=== PATIENT | female | born 2000 | race Caucasian/White ===

== ENCOUNTER 2025-08-24 13:34 | Outpatient (CLI) | payer OTHER ==
[~2025-08-24] VITALS: Ht 165.1 cm; Wt 86.2 kg
[2025-08-24 14:21] VITALS: BP 140/62
[2025-08-24 14:28] VITALS: BP 140/62
[2025-08-24 14:31] LABS: URINE APPEARANCE Clear; URINE BILIRRUBIN Negative (NEGATIVE); URINE BLOOD Negative; URINE COLOR Yellow; URINE GLUCOSE Negative (NEGATIVE); URINE KETONE Negative (NEGATIVE); URINE LEUKOCYTE Trace; URINE NITRATE Negative; URINE PROTEIN Negative (NEGATIVE); URINE UROBILINOGEN 0.2 E.U./dl
[2025-08-24 14:32] LABS: BASO % 0.2 % (0.1-1.2); EOS # 0.05 (0.04-0.54); EOS % 0.5 % (0.7-7.0); LYMPH # 1.93 (1.18-3.74); LYMPH % 20.8 % (19.3-53.1); MEAN PLATELET VOLUME 9.60 fl (9.4-12.4); MONO # 0.52 (0.24-0.82); MONO % 5.6 % (4.7-12.5); NEUT # 6.67 (1.56-6.13); NEUT % 72.0 % (34.0-71.1); RED CELL DISTRIBUTION WIDTH 15.1 % (11.6-14.4)
[2025-08-24 14:35] LABS: URINE BACTERIA 1220.2 uL (0.0-1933); URINE EPITHELIAL CELLS 7.3 uL (0.0-38.8); URINE WBC 19.3 uL (0.0-23.2)
[2025-08-24 14:45] LABS: URINE CAST 0.00 uL (0.0-1.40); URINE RBC 1.2 uL (0.0-20.8)
[2025-08-24] MEDS ORDERED: RINGERS SOLUTION,LACTATED 1,000 ML IV SCH (14:45)
[2025-08-24 14:50] LABS: INR < 0.93
[2025-08-24 14:59] LABS: ALT/SGPT 28.0 U/L (12-78); AST/SGOT 23.0 U/L (15-37); BILIRUBIN TOTAL 0.26 mg/dL (0.3-1.2); BUN CREA RATIO 13.0 (7.0-25.0); CREATININE SERUM 0.79 mg/dL (0.55-1.02); GFR 87.3; GLOBULINA 3.6 G/DL (2.4-3.5); GLUCOSE FASTING 82.0 mg/dL (65-100); OSMOLALITY SERUM 278.0 MOSM/KG (275-295)
[2025-08-24 15:18] VITALS: BP 144/69
[2025-08-24 19:34] VITALS: BP 142/66
[2025-08-24 23:24] VITALS: BP 132/62
[2025-08-25 03:41] VITALS: BP 136/61
[2025-08-25 07:39] VITALS: BP 122/62
[2025-08-25 11:14] VITALS: BP 111/60
[2025-08-25 15:10] LABS: CREATININE URINE 93.0 MG/DL; URINE PROT QUANT 24HR 13.7 MG/DL
[2025-08-25 15:11] VITALS: BP 143/80
[2025-08-25 16:10] LABS: CREATINE CLEARANCE 140.1 ML/MIN (97-137); CREATININE SERUM 0.82 mg/dL (0.6-1.0)
[2025-08-25 16:27] VITALS: BP 127/61
== END 2025-08-25 16:29 | disposition home or self-care (01) ==
LOC: OBS/DEL 13:34
PROVIDERS: ATTEND Specialist
DX: O14.93 Unspecified pre-eclampsia, third trimester (principal); Z3A.35 35 weeks gestation of pregnancy